=== PATIENT | male | born 1955 | race Caucasian/White ===

== ENCOUNTER → 2017-08-04 11:11 | Outpatient (CLI) | payer OTHER, SELFPAY | PROVIDERS: Visit Provider Radiology Radiation Oncology | DX: C79.51 Secondary malignant neoplasm of bone (principal); Z85.46 Personal history of malignant neoplasm of prostate | CPT/HCPCS: 79101; A9606 ==

== ENCOUNTER → 2017-09-01 11:15 | Outpatient (CLI) | payer OTHER, SELFPAY | PROVIDERS: Visit Provider Radiology Radiation Oncology | DX: C79.51 Secondary malignant neoplasm of bone (principal); Z85.46 Personal history of malignant neoplasm of prostate | CPT/HCPCS: 79101; A9606 ==

== ENCOUNTER → 2017-10-06 11:22 | Outpatient (CLI) | payer OTHER, SELFPAY | PROVIDERS: Visit Provider Radiology Radiation Oncology | DX: C61 Malignant neoplasm of prostate (principal); C79.51 Secondary malignant neoplasm of bone | CPT/HCPCS: 79101; A9606 ==

== ENCOUNTER → 2017-11-03 10:53 | Outpatient (CLI) | payer OTHER, SELFPAY | PROVIDERS: Visit Provider Radiology Radiation Oncology | DX: C61 Malignant neoplasm of prostate (principal); C79.51 Secondary malignant neoplasm of bone | CPT/HCPCS: 79101; A9606 ==

== ENCOUNTER → 2017-12-01 10:58 | Outpatient (CLI) | payer OTHER, SELFPAY | PROVIDERS: Visit Provider Radiology Radiation Oncology | DX: C61 Malignant neoplasm of prostate (principal); C79.51 Secondary malignant neoplasm of bone | CPT/HCPCS: 79101; A9606 ==

== ENCOUNTER → 2017-12-29 11:31 | Outpatient (CLI) | payer OTHER, SELFPAY | PROVIDERS: Referring Provider Radiology Radiation Oncology; Visit Provider Radiology Radiation Oncology | DX: C61 Malignant neoplasm of prostate (principal); C79.51 Secondary malignant neoplasm of bone | CPT/HCPCS: 79101; A9606 ==

== ENCOUNTER → 2018-03-09 08:05 | Outpatient (CLI) | payer MEDICARE, SELFPAY ==
[2018-03-09 09:57] VITALS: BP 105/59; PULSE 69; RESP 15; TEMP 36.6; O2SAT 95; BMI 28.5
[2018-03-09 10:16] VITALS: BP 104/58; PULSE 70; RESP 15; TEMP 36.4; O2SAT 96
[2018-03-09 10:19] VITALS: BP 111/59; PULSE 74; RESP 16; TEMP 36.7
[2018-03-09 12:12] VITALS: BP 119/65; PULSE 71; RESP 15; TEMP 36.6; O2SAT 96
[2018-03-09 12:53] VITALS: BP 112/60; PULSE 73; RESP 16; TEMP 36.7
[2018-03-09 13:53] VITALS: BP 115/66; PULSE 71; RESP 16; TEMP 36.3; O2SAT 98
== END ==
PROVIDERS: Referring Provider Internal Medicine Hematology & Oncology; Visit Provider Internal Medicine Hematology & Oncology
DX: C61 Malignant neoplasm of prostate (principal); C79.51 Secondary malignant neoplasm of bone
CPT/HCPCS: 36430; 86850; 86900; 86920; 86922; J7040; P9016; A4216

== ENCOUNTER 2018-03-27 11:41 | Outpatient (CLI) | payer MEDICARE, SELFPAY ==
[2018-03-09 09:57] VITALS: BMI 28.5
[2018-03-27 11:17] LABS: Hematocrit 20.7 % (40-54); Hemoglobin 6.6 g/dl (13.0-16.5); Mean Corp Hgb Conc 31.9 g/gl (32-36); Mean Corpuscular Hgb 30.6 pg (27.0-32.0); Mean Corpuscular Volume 95.8 fL (80-94); Mean Platelet Vol. 10.2 fl (6.2-12.0); Red Blood Count 2.16 M/mm3 (4.6-6.2); White Blood Count 14.6 K/mm3 (4.4-11.0)
[2018-03-27 11:23] LABS: Platelet Count 28 K/mm3 (150-450); Scan Indicated on CBC? Y/N YES- FLAGS NOTED
[2018-03-27 12:00] VITALS: BP 119/68; PULSE 74; RESP 16; TEMP 36.4; O2SAT 96; BMI 28.1
[2018-03-27 12:34] VITALS: BP 112/78; PULSE 69; RESP 16; TEMP 36.2; O2SAT 97
[2018-03-27 13:34] VITALS: BP 113/65; PULSE 67; RESP 16; TEMP 36.5
[2018-03-27 14:08] VITALS: BP 125/67; PULSE 67; RESP 16; TEMP 36.9
[2018-03-27 14:45] VITALS: BP 127/66; PULSE 69; RESP 16; TEMP 36.3; O2SAT 96
[2018-03-27 15:14] VITALS: BP 117/75; PULSE 66; RESP 16; TEMP 37.1; O2SAT 98
[2018-03-29 13:17] LABS: Pathologist Review Reviewed
== END 2018-03-27 16:32 | disposition home or self-care (01) ==
LOC: MEDOUTP 11:41 → MS3 15:06
PROVIDERS: Referring Provider Internal Medicine Hematology & Oncology; Visit Provider Internal Medicine Hematology & Oncology
DX: D64.9 Anemia, unspecified (principal); C61 Malignant neoplasm of prostate
CPT/HCPCS: 36415; 36430; 85027; 86850; 86900; 86920; 86922; J7040; P9016; A4216

== ENCOUNTER → 2018-04-06 09:34 | Outpatient (CLI) | payer MEDICARE, OTHER, SELFPAY ==
[2018-03-27 12:00] VITALS: BMI 28.1
[2018-04-06] VITALS (8 sets, daily range): BP systolic 102–142; BP diastolic 51–75; PULSE 60–73; RESP 15–16; TEMP 36.6–37.8; O2SAT 93–98; BMI 27.6
[2018-04-06] MEDS: Acetaminophen 325 MG Tablet PO (09:55)
== END ==
PROVIDERS: Referring Provider Internal Medicine Hematology & Oncology; Visit Provider Internal Medicine Hematology & Oncology
DX: Z51.89 Encounter for other specified aftercare (principal); C61 Malignant neoplasm of prostate; D64.81 Anemia due to antineoplastic chemotherapy; D69.59 Other secondary thrombocytopenia; T45.1X5A Adverse effect of antineoplastic and immunosuppressive drugs, initial encounter; Y92.9 Unspecified place or not applicable
CPT/HCPCS: 36415; 36430; 86644; 86850; 86900; 86920; 86922; 86965; J7040; P9016; P9035; A4216

== ENCOUNTER → 2018-04-14 09:56 | Outpatient (CLI) | payer MEDICARE, OTHER, SELFPAY ==
[2018-04-06 09:56] VITALS: BMI 27.6
[2018-04-14 13:05] VITALS: BP 132/61; PULSE 73; RESP 16; TEMP 36.6; O2SAT 100; BMI 27.8
[2018-04-14 13:40] VITALS: BP 101/57; PULSE 71; TEMP 36.6
[2018-04-14 14:40] VITALS: BP 122/64; PULSE 70; RESP 18; TEMP 36.4; O2SAT 98
[2018-04-14 15:42] VITALS: BP 126/65; PULSE 88; RESP 16; TEMP 36.3
[2018-04-14 17:14] VITALS: BP 135/64; PULSE 69; RESP 18; TEMP 36.8; O2SAT 98
== END ==
PROVIDERS: Visit Provider Internal Medicine Hematology & Oncology
DX: Z51.89 Encounter for other specified aftercare (principal); C61 Malignant neoplasm of prostate
CPT/HCPCS: 36430; 86850; 86900; 86920; 86922; J7040; P9016; A4216

== ENCOUNTER → 2018-05-18 17:17 | Outpatient (CLI) | payer MEDICARE, OTHER, SELFPAY ==
[2018-04-14 13:05] VITALS: BMI 27.8
== END ==
PROVIDERS: Referring Provider Internal Medicine Hematology & Oncology; Visit Provider Internal Medicine Hematology & Oncology
DX: C61 Malignant neoplasm of prostate (principal); D64.81 Anemia due to antineoplastic chemotherapy; T45.1X5A Adverse effect of antineoplastic and immunosuppressive drugs, initial encounter
CPT/HCPCS: 36415; 85025; 86850; 86900; 86920; 86922

== ENCOUNTER → 2018-05-19 09:13 | Outpatient (CLI) | payer MEDICARE, OTHER, SELFPAY ==
[2018-04-14 13:05] VITALS: BMI 27.8
[2018-05-18 17:53] LABS: Hematocrit 21.5 % (40-54); Hemoglobin 6.8 g/dl (13.0-16.5); Mean Corp Hgb Conc 31.6 g/gl (32-36); Mean Corpuscular Hgb 29.7 pg (27.0-32.0); Mean Corpuscular Volume 93.9 fL (80-94); Mean Platelet Vol. 9.7 fl (6.2-12.0); Platelet Count 60 K/mm3 (150-450); RBC Distribution Width CV 18.5 % (11.6-14.6); RBC Distribution Width SD 57.7 fl (35.1-43.9); Red Blood Count 2.29 M/mm3 (4.6-6.2); White Blood Count 5.5 K/mm3 (4.4-11.0)
[2018-05-18 17:54] LABS: Differential Indicated MANUAL DIFF; POSITIVE COUNT YES; POSITIVE DIFFERENTIAL NO; POSITIVE MORPHOLOGY YES
[2018-05-18 18:39] LABS: Metamyelocyte 5 % (0-1); Myelocyte 2 (0-0); Neutrophil-Band 8 % (0-5); Neutrophil-Segmented 53 % (47-70); Total Cells Counted 100 (MANUAL DIFF)
[2018-05-18 18:40] LABS: Eosinophil 1 % (0-5); Lymphocyte 22 % (19-41); Monocyte 8 % (0-10); Nucleated Red Bld Cells,Manual 1 % (0-5); Platelet Estimate MKD DEC (ADEQ); Promyelocyte 1 (0-0)
[2018-05-18 18:41] LABS: Anisocytosis 1+; Red Cell Morphology N CHROM NORMAL (NORM C&C)
[2018-05-18 18:42] LABS: Neutrophil # 3.33 X10^3/uL (2.7-7.7)
[2018-05-18 18:43] LABS: Absolute Neutrophil Count 3.3 X10^3/uL (2.0-7.7)
[2018-05-19] VITALS (7 sets, daily range): BP systolic 109–129; BP diastolic 56–67; PULSE 65–79; RESP 16–18; TEMP 36.2–37.1; O2SAT 97–99; BMI 26.4
[2018-05-19 13:12] LABS: Pathologist Review Reviewed
== END ==
PROVIDERS: Visit Provider Internal Medicine Hematology & Oncology
DX: C61 Malignant neoplasm of prostate (principal); C79.51 Secondary malignant neoplasm of bone
CPT/HCPCS: 36415; 36430; 85025; 86850; 86900; 86920; 86922; J7040; P9016; A4216